=== PATIENT | female | born 1955 ===

== ENCOUNTER 2018-03-06 12:39 | Emergency (ER) | payer MEDICAID ==
[2018-03-06 12:39] VITALS: BMI 17.4
[2018-03-06 12:47] VITALS: BP 160/79; PULSE 70; RESP 18; TEMP 98; O2SAT 100
[2018-03-06 14:00] LABS: BASO # 0.1 K/uL (0.0-0.2); EOS # 0.2 K/uL (0.0-0.7); EOS % 1.7 % (0.0-4.0); HEMOGLOBIN 15.8 g/dL (12.0-16.0); LYMPH # 2.1 K/uL (1.0-4.3); LYMPH % 24.3 % (20.0-40.0); MEAN CELL VOLUME 97.7 fl (81.0-99.0); MEAN CORPUSCULAR HGB CONC 33.8 g/dL (33.0-37.0); MEAN PLATELET VOLUME 7.5 fl (7.2-11.7); MONO # 0.7 K/uL (0.0-0.8); MONO % 7.7 % (0.0-10.0); NEUT # 5.7 K/uL (1.8-7.0); NEUT % 65.3 % (50.0-75.0); NRBC % 0.2 % (0.0-0.0); RBC 4.79 Mil/uL (3.80-5.20); RED CELL DISTRIBUTION WIDTH 14.1 % (11.5-14.5); WHITE BLOOD COUNT 8.8 K/uL (4.8-10.8)
[2018-03-06] MEDS: Iohexol 240 (50 ml) PO STA (14:04)
[2018-03-06 14:15] LABS: ALB/GLOB RATIO 1.2 (1.0-2.1); ALT/SGPT 51 U/L (9-52); AST/SGOT 29 U/L (14-36); BLOOD UREA NITROGEN 14 mg/dl (7-17); CALCIUM 8.9 mg/dL (8.4-10.2); GFR AFRICAN-AMERICAN > 60; GFR NON-AFRICAN AMERICAN > 60
[2018-03-06 14:24] LABS: PARTIAL THROMBOPLASTIN TIME 31.1 Seconds (25.6-37.1); PROTHROMBIN TIME 10.8 Seconds (9.8-13.1)
[2018-03-06] MEDS ORDERED: Sodium Chloride 0.9% 50 ML IV ONE (15:55)
[2018-03-06] MEDS ORDERED: Iohexol 300 100 ML IJ ONE (15:55)
--- NOTE | 2018-03-06 16:20 | ED PDOC ---
HPI: Abdomen Time Seen by Provider: 03/06/18 13:21 Chief Complaint (Nursing): GI Problem Chief Complaint (Provider): Low abdominal discomfort x 1 day History Per: Patient History/Exam Limitations: no limitations Onset/Duration Of Symptoms: Days Outside of [place] travel?: No Current Symptoms Are (Timing): Still Present Location Of Pain/Discomfort: Suprapubic Quality Of Discomfort: Dull Associated Symptoms: Nausea, Loss Of Appetite. denies: Fever, Chills, Vomiting , Back Pain, Chest Pain, Constipation, Urinary Symptoms Exacerbating Factors: None Additional Complaint(s): 62 yo female with history of HTN presents with 1 week of constipation and lower abdominal pain today. Pt reports intermittent nausea and decreased appetite over the last few months. Pt was seen by Flaco Valentino NP at the [facility] and was told to come for evaluation. Both he and the patient have noticed extreme weight loss in the last few months. Pt was HIV (-) in July. Past Medical History Reviewed: Historical Data, Nursing Documentation, Vital Signs Vital Signs: Last Vital Signs Temp 98 F 03/06/18 12:41 Pulse 70 03/06/18 12:41 Resp 18 03/06/18 12:41 BP 160/79 H 03/06/18 12:41 Pulse Ox 100 03/06/18 16:45 - Medical History PMH: Anxiety, Asthma, Bipolar Disorder, COPD, Depression, HTN Denies: Diabetes, Hepatitis, HIV, Paranoia, Post Traumatic Stress Disorder, Chronic Kidney Disease, Schizophrenia, Seizures, Sexually Transmitted Disease - Surgical History Surgical History: No Surg Hx - Family History Family History: States: Unknown Family Hx - Living Arrangements Living Arrangements: With Family - Social History Current smoker - smoking cessation education provided: Yes Alcohol: None Drugs: Cannabis - Home Medications Home Medications: Ambulatory Orders Medication Instructions Recorded Albuterol 0.083% [Albuterol 0.083% 3 ml IH Q4H PRN 11/08/16 Inhal Nallely (2.5 mg/3 ml) UD] Docusate [Colace] 100 mg PO DAILY PRN #30 cap 11/13/16 Mirtazapine [Remeron] 7.5 mg PO HS #15 tab 11/13/16 Multimineral/Multivitamin 1 tab PO DAILY #30 tab 11/13/16 [Therapeutic-M Tab] Venlafaxine [Effexor XR] 37.5 mg PO DAILY #30 cer 11/13/16 clonazePAM [Klonopin] 1 mg PO TID #45 tab 11/13/16 Azithromycin [Zithromax] 250 mg PO DAILY #4 tab 02/16/18 Ibuprofen [Motrin] 400 mg PO QID PRN #30 tab 02/16/18 Prednisone 50 mg PO DAILY #4 tablet 02/16/18 - Allergies Allergies/Adverse Reactions: Allergies Allergy/AdvReac Type Severity Reaction Status Date / Time No Known Allergies Allergy Verified 03/06/18 12:41 Review of Systems ROS Statement: Except As Marked, All Systems Reviewed And Found Negative Constitutional: Negative for: Fever, Chills Gastrointestinal: Positive for: Nausea, Constipation Genitourinary Female: Negative for: Dysuria, Frequency Physical Exam - Reviewed Nursing Documentation Reviewed: Yes Vital Signs Reviewed: Yes - Physical Exam Appears: Positive for: Well, Non-toxic, No Acute Distress Head Exam: Positive for: ATRAUMATIC, NORMAL INSPECTION, NORMOCEPHALIC Skin: Positive for: Normal Color, Warm, DRY Eye Exam: Positive for: Normal appearance ENT: Positive for: Normal ENT Inspection Neck: Positive for: Normal, Painless ROM Cardiovascular/Chest: Positive for: Regular Rate, Rhythm Respiratory: Positive for: Normal Breath Sounds. Negative for: Accessory Muscle Use, Respiratory Distress Gastrointestinal/Abdominal: Positive for: Normal Exam, Soft. Negative for: Tenderness, Guarding Back: Positive for: Normal Inspection Extremity: Positive for: Normal ROM Neurologic/Psych: Positive for: Alert, Oriented - Laboratory Results Result Diagrams: 03/06/18 13:45 03/06/18 13:45 - ECG O2 Sat by Pulse Oximetry: 100 Medical Decision Making Medical Decision Makin - Pt requests IV taken out. 1645 - Pt seen walking out of the ER. 1715 - Discusses CT results with patient. Pt states she is going to f/u with her PMD dr. Rehman tomorrow. Discussed urine testing. Disposition - Clinical Impression Clinical Impression: Abdominal pain - Patient ED Disposition Is Patient to be Admitted: No - Disposition Disposition: Left W/O Treatment Disposition Time: 16:45 Condition: STABLE Forms: [employer] (Amharic)
--- NOTE | 2018-03-06 17:05 | CT ---
PROCEDURE: CT Abdomen and Pelvis with contrast HISTORY: constipation, weight loss COMPARISON: None. TECHNIQUE: Contrast dose: 70 mL Omnipaque 300 Radiation dose: Total exam DLP = 206.7 mGy-cm. This CT exam was performed using one or more of the following dose reduction techniques: Automated exposure control, adjustment of the mA and/or kV according to patient size, and/or use of iterative reconstruction technique. FINDINGS: LOWER THORAX: Unremarkable. LIVER: Unremarkable. No gross lesion or ductal dilatation. GALLBLADDER AND BILE DUCTS: Unremarkable. PANCREAS: Unremarkable. No gross lesion or ductal dilatation. SPLEEN: Unremarkable. ADRENALS: Unremarkable. No mass. KIDNEYS AND URETERS: Calcific atherosclerosis. No hydronephrosis. No solid mass. VASCULATURE: Unremarkable. No aortic aneurysm. BOWEL: Unremarkable. No obstruction. No gross mural thickening. APPENDIX: Normal appendix. PERITONEUM: Unremarkable. No free fluid. No free air. LYMPH NODES: Unremarkable. No enlarged lymph nodes. BLADDER: Unremarkable. REPRODUCTIVE: Unremarkable. BONES: No acute fracture. OTHER FINDINGS: None. IMPRESSION: No acute abdominal pelvic pathology.
== END 2018-03-06 16:40 | disposition left against medical advice (07) ==
LOC: H.ER 12:39
DX: R10.30 Lower abdominal pain, unspecified (principal); F17.200 Nicotine dependence, unspecified, uncomplicated; F31.9 Bipolar disorder, unspecified; F41.9 Anxiety disorder, unspecified; I10 Essential (primary) hypertension; K59.00 Constipation, unspecified; J44.9 Chronic obstructive pulmonary disease, unspecified
CPT/HCPCS: 74177; 80053; 83690; 85025; 85610; 85730; 99284; Q9966; Q9967